=== PATIENT | female | born 1960 | race Caucasian/White ===

== ENCOUNTER 2023-03-10 09:58 | Emergency (ER) | payer BC, SELFPAY ==
--- NOTE | ~2023-03-10 | XR_ITS ---
EXAMINATION: XR shoulder RT min 2V INDICATION: Right shoulder pain, initial encounter TECHNIQUE: Three views of the right shoulder are submitted. COMPARISON: None FINDINGS: There is a comminuted surgical neck fracture of the right humerus. The greater tuberosity i s seen as a separate fracture fragment. Glenohumeral and acromioclavicular joint spaces are normal. S oft tissues are unremarkable. IMPRESSION: 1. Comminuted fracture of the proximal right humerus. Reviewed, dictated and finalized at location B. R [facility]ER
--- NOTE | 2023-03-10 10:06 | ED.UPPEXIN ---
HPI - Extremity Injury (Upper) General Chief Complaint: Extremity Injury, Upper Stated Complaint: INJURED R SHOULDER Time Seen by Provider: 03/10/23 10:07 Source: patient and RN notes reviewed History of Present Illness HPI narrative: Patient is a 62-year-old female who presents to urgent care with complaints of right shoulder pain. Patient states that approximately 90 minutes prior to arrival she fell while walking her sister's dog. Patient fell onto her right shoulder. Denies any in her head or any loss of consciousness. Denies any other pain or discomfort. Patient states it is very painful to move the arm and she did have her neighbor drive her to the facility. Patient took ibuprofen prior to arrival. No other acute complaints. No acute distress noted. Patient aware of the plan of care. Some parts of this dictation were generated by voice recognition software and may contain typographical and/or grammatical inaccuracies. Related Data Allergies Allergy/AdvReac Type Severity Reaction Status Date / Time Penicillins Allergy Unknown Other Verified 03/10/23 10:00 Sulfa (Sulfonamide Allergy Unknown Other Unverified 03/10/23 10:00 Antibiotics) PCN Allergy Unknown Other Uncoded 03/10/23 10:00 Review of Systems Review of Systems: CONSTITUTIONAL: Denies fever, chills, or sweats. EYES: Denies visual changes, redness, or discharge. ENT: Denies rhinorrhea, congestion, sore throat, or otalgia. CARDIOVASCULAR: Denies chest pain, palpitations, or edema. RESPIRATORY: Denies cough or dyspnea. GASTROINTESTINAL: Denies abdominal pain, nausea, vomiting, or diarrhea. GENITOURINARY: Denies dysuria or hematuria. SKIN: Denies rash or itching. MUSCULOSKELETAL: Reports of right shoulder pain NEUROLOGIC: Denies headache, numbness, or weakness. All other systems reviewed are negative, except as documented in HPI. PMFSH Comments At the time of my signature, I reviewed and agree with the nursing past medical, surgical, social, and family history. There is no relevant family history pertinent to the patient complaint. Exam Narrative: GENERAL: This is a well-nourished, well-developed patient, in no apparent distress. HEAD: normocephalic, atraumatic. EYES: PERRL. Sclera clear/white. Vision is grossly intact. EARS: External ears normal, NOSE: External nose normal with no obvious nasal discharge, nares without redness, no rhinorrhea. THROAT: Mucous membranes moist NECK: Neck supple, SKIN: warm, intact with no suspicious lesions or rash, good texture and turgor. NEURO: awake, alert, and oriented to person, place and time. There were no obvious focal neurologic abnormalities. EXTREMITIES: Range of motion not tested to right arm due to pain and discomfort. Positive strong right radial pulse with capillary refill less than 2 seconds. No obvious deformity to the right shoulder/right upper extremity. Course Course Level of Care: Express Care Visit Vital Signs Vital signs: Vital Signs Temperature 97.5 F L 03/10/23 10:14 Pulse Rate 90 03/10/23 10:14 Respiratory Rate 16 03/10/23 10:14 Blood Pressure 171/77 H 03/10/23 10:14 Pulse Oximetry 100 03/10/23 10:14 Temperature 97.5 F L 03/10/23 10:14 Pulse Rate 90 03/10/23 10:14 Respiratory Rate 16 03/10/23 10:14 Blood Pressure 171/77 H 03/10/23 10:14 Pulse Oximetry 100 03/10/23 10:14 Reviewed- Patient is informed that they may have pre-hypertension or hypertension based on a blood pressure reading in the department. I recommend the patient call the primary care provider listed on their discharge instructions or a physician of their choice this week to arrange follow-up for further evaluation of possible pre-hypertension or hypertension. MDM - Extremity Injury (Upper) MDM Narrative Medical decision making narrative: Reviewed x-ray results with the patient. She is aware that she has a shoulder fracture and will need to follow-up with the orthopedic. Spoke
[2023-03-10 10:14] VITALS: BP 171/77; PULSE 90; RESP 16; TEMP 36.4; O2SAT 100
== END 2023-03-10 11:10 | disposition home or self-care (01) ==
PROVIDERS: Emergency Provider Nurse Practitioner Family
DX: S42.201A Unspecified fracture of upper end of right humerus, initial encounter for closed fracture (principal); W19.XXXA Unspecified fall, initial encounter; Y93.K1 Activity, walking an animal
CPT/HCPCS: 73030; 99214; A4565; G0463

== ENCOUNTER 2023-05-07 07:38 | Outpatient (CLI) | payer BC, SELFPAY ==
--- NOTE | ~2023-05-07 | XR_ITS ---
Right Shoulder Technique: AP and scapular Y views were obtained. Clinical History: Fracture COMPARISON: 04/08/2023 Findings: Comminuted fracture of proximal humerus, involving the surgical neck and greater tuberosity is similar to prior exam. No significant change in osseous alignment. No significant callus formatio n. The glenohumeral and acromioclavicular joint spaces are preserved. Soft tissues are unremarkable. Impression: No significant interval change in comminuted fracture of the surgical neck and greater tuberosity of the proximal humerus. Reviewed, dictated and finalized at location M. [facility] [employer] Impression: No significant interval change in comminuted fracture of the surgical neck and greater tuberosity of the proximal humerus.
== END 2023-05-07 07:39 | disposition home or self-care (01) ==
PROVIDERS: Visit Provider Orthopaedic Surgery
DX: S42.211A Unspecified displaced fracture of surgical neck of right humerus, initial encounter for closed fracture (principal); X58.XXXA Exposure to other specified factors, initial encounter
CPT/HCPCS: 73030